=== PATIENT | male | born 1935 | race Caucasian/White ===

== ENCOUNTER 2024-06-14 09:22 | Observation (INO) ==
[~2024-06-14 09:22] MED LIST: Metoclopramide 5 MG/ML VIAL (10 mg) IV PRN; NS 0.45% 1000 ml BAG 1,000 ML IV SCH; Naloxone 0.4 mg VIAL 0.4 mg/ml 1 ml VIAL IV PRN; Ondansetron 4 mg VIAL 2 MG/ML 2 ml VIAL IV PRN; Scopolamine 1 mg/72hr PATCH TRANSDERM ONE; fentaNYL 100 mcg/2 ml 50 MCG/ML VIAL IV PRN
[2024-06-14] MEDS ORDERED: cefTRIAXone 2 gm/50 mL D5W 2 GM/50 ML BAG IV ONE (10:22)
[2024-06-14 10:45] LABS: Rapid COVID-19 Molecular Undetected (Undetected)
[2024-06-14] MEDS ORDERED: Lidocaine 2% PF 5 ML VIAL ONE (11:58)
[2024-06-14] MEDS ORDERED: Phenylephrine 40 mcg/mL 10mL (400mcg) SYRINGE ONE (11:58)
[2024-06-14] MEDS ORDERED: fentaNYL 100 mcg/2 ml 50 MCG/ML VIAL ONE (11:58)
[2024-06-14] MEDS ORDERED: Midazolam 2 mg/2 ml VIAL 1 mg/ml 2 ml VIAL (2 mg) ONE (12:54)
[2024-06-14] MEDS ORDERED: Ondansetron 4 mg VIAL 2 MG/ML 2 ml VIAL ONE (13:25)
[2024-06-14] MEDS ORDERED: Glycopyrrolate IV 0.2 MG/ML 1 ML VIAL ONE (13:25)
[2024-06-14] MEDS ORDERED: Dexamethasone IV 4 MG/ML VIAL 1 ml VIAL ONE (13:25)
[2024-06-14] MEDS ORDERED: Furosemide 20 mg/2 ml IV VIAL ONE (13:55)
[2024-06-14] MEDS: Acetaminophen IV 1 GM/100ML 1,000 MG/100 ML BAG IV ONE (17:16)
[2024-06-14] MEDS: Buffered Lidocaine 1% SYRIN 1 ml INTRADERM ONE (17:16)
[2024-06-14] MEDS: Lactated Ringers 1000 ml BAG 1,000 ML IV SCH ×2 (17:17→17:26)
[2024-06-14] MEDS ORDERED: Albuterol 2.5mg/3 ml (0.083%) NEB.SOLN INH PRN (21:21)
[2024-06-15 05:43] LABS: Creatinine, Serum 1.08 mg/dL (0.67-1.17); Potassium 4.7 mmol/L (3.5-5.0)
[2024-06-15] MEDS: FLUTICAS/UMECLI/VILANT 100-62.5-25 MDI (NF) INH SCH (08:01)
[2024-06-15] MEDS: cefTRIAXone 1 gm/50 mL D5W 1 GM/50 ML BAG IV ONE (09:13)
[2024-06-15] MEDS: Simvastatin 20 mg TAB (NF) PO SCH (09:13)
[2024-06-15 10:31] VITALS: BP 139/58
== END 2024-06-15 11:40 | disposition home or self-care (01) ==
LOC: OR 09:22 → SSU 09:22
PROVIDERS: ADMIT Urology; ATTEND Urology

== ENCOUNTER 2024-07-15 09:19 | Observation (INO) ==
[2024-07-15 10:23] LABS: ABS Lymphocytes 0.5 10^3/uL (1.0-4.8); ABS Monocytes 0.7 10^3/uL (0.0-1.1); Eosinophil % 0.6 %; Hematocrit 35.6 % (38-53); Hemoglobin 11.9 g/dL (13.2-16.3); Lymphocyte % 7.5 %; Mean Corpuscular Hemoglobin 29.7 pg (27-33); Mean Corpuscular Hgb Conc 33.3 g/dL (31-36); Mean Corpuscular Volume 89.3 fL (80-97); Mean Platelet Volume 9.2 fL (7.5-11.2); Platelet Count 201 10^3/uL (150-450); Red Blood Count 3.99 10^6/uL (4.06-5.63); Red Cell Distribution Width 14.3 % (12-17); White Blood Count 6.2 10^3/uL (3.6-10.2)
[2024-07-15 10:54] LABS: ALT 10 U/L (7-52); AST 19 U/L (13-39); Albumin 3.4 g/dL (3.2-5.2); Albumin/Globulin Ratio 1.3 (1-3); Alkaline Phosphatase 71 U/L (35-149); Anion Gap 5 mmol/L (2-16); Blood Urea Nitrogen 23 mg/dL (6-24); CO2 Carbon Dioxide 28 mmol/L (22-32); Calcium 8.4 mg/dL (8.6-10.3); Chloride 106 mmol/L (101-111); Creatinine, Serum 1.14 mg/dL (0.67-1.17); Globulin 2.6 g/dL (2-4); Glucose 142 mg/dL (70-100); Potassium 3.9 mmol/L (3.5-5.0); Sodium 139 mmol/L (135-145); Total Bilirubin 0.4 mg/dL (0.2-1.0); eGFR CKD-EPI 61.9 (>60)
[2024-07-15] MEDS ORDERED: Albuterol 2.5mg/3 ml (0.083%) NEB.SOLN INH PRN (12:58)
[2024-07-15] MEDS: Enoxaparin 40 MG/0.4 ML SYR SUBCUT SCH (14:01)
[2024-07-15 14:52] LABS: INR 0.99 (0.85-1.14)
[2024-07-15] MEDS: Remdesivir 100 mg Vial 200 MG in NS 0.9% 250 ml 210 ML IV ONE (16:05)
[2024-07-15 16:59] LABS: % Iron Saturation 10 % (15-55); .Transferrin 150 mg/dL (203-362); Iron < 20 ug/dL (50-212); Total Iron Binding Capacity 210 mcg/dL (250-450); Unsaturated Iron Binding 190 ug/dL
[2024-07-15 17:21] LABS: Ferritin 242.3 ng/mL (24-336)
[2024-07-15 17:24] LABS: Folate 18.45 ng/mL (5.90-24.80)
[2024-07-15 17:25] LABS: Vitamin B12 245 pg/mL (180-914)
[2024-07-16 07:07] LABS: Hematocrit 38.4 % (38-53); Hemoglobin 13.1 g/dL (13.2-16.3); Mean Corpuscular Hemoglobin 30.4 pg (27-33); Mean Corpuscular Hgb Conc 34.1 g/dL (31-36); Mean Corpuscular Volume 89.4 fL (80-97); Mean Platelet Volume 9.5 fL (7.5-11.2); Platelet Count 206 10^3/uL (150-450); White Blood Count 3.6 10^3/uL (3.6-10.2)
[2024-07-16 07:16] LABS: Calcium 8.7 mg/dL (8.6-10.3); Creatinine, Serum 0.97 mg/dL (0.67-1.17); Potassium 4.3 mmol/L (3.5-5.0); eGFR CKD-EPI 75.1 (>60)
[2024-07-16] MEDS: CMCS: FLUTICAS/UMECLI/VILANT 100-62.5-25 MDI (NF) INH SCH (08:48)
[2024-07-16 13:19] VITALS: BP 151/71
[2024-07-16] MEDS ORDERED: Remdesivir 100 mg Vial 100 MG in NS 0.9% 250 ml 230 ML IV SCH (21:00)
== END 2024-07-16 15:58 | disposition home or self-care (01) ==
LOC: EDHOLD 09:19 → ED 09:19 → MED 12:40
PROVIDERS: ADMIT Hospitalist; ATTEND Hospitalist